=== PATIENT | female | born 1980 | race Caucasian/White ===

== ENCOUNTER 2016-11-03 14:00 | Inpatient (IN) | payer OTHER ==
[~2016-11-03] VITALS: Ht 167.6 cm; Wt 56.7 kg
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
--- NOTE | ~2016-11-03 | HP ---
Unit #: [id number] #: [id number] Patient: CHELSEA HAYDEN [id number] [place] [address] [id number] MR#: [id number] NAME: CHELSEA HAYDEN ROOM: P202 Age: 36 Sex: F Admission Date: 11/03/2016 : 1980 Attending Physician: Frandy Murphy M.D. Admitting Physician: Frandy Murphy M.D. Primary Care Physician: Generic Doctor Not In System HISTORY AND PHYSICAL HISTORY OF PRESENT ILLNESS The patient is a 36-year-old female admitted to [address] [place] [address] on 11/03/2016 for polysubstance abuse and suicidal ideations. PAST MEDICAL HISTORY Patient denies. PAST SURGICAL HISTORY 1. x3. 2. D and C. 3. Hysterectomy. 4. Breast augmentation. 5. Appendectomy. ALLERGIES Penicillin. SOCIAL HISTORY Patient is employed but is currently on leave. She is homeless. She smokes 1 pack of cigarettes daily. Drinks a pint plus 6 to 10 beers per day and has a history of polysubstance use. FAMILY HISTORY Noncontributory. REVIEW OF SYSTEMS CONSTITUTIONAL: No fever or chills. HEENT: Denies any sore throat, ear pain or runny nose. CARDIOVASCULAR: Denies chest pain, irregular heart rhythm or palpitations. CHEST: Denies shortness of breath or cough. No hemoptysis. GASTROINTESTINAL: Denies nausea, vomiting, diarrhea or chronic constipation. ENDOCRINE: Denies history of increased thirst or urination. No recent significant weight loss or gain. GENITOURINARY: Denies dysuria, frequency, or hematuria. SKIN: Denies any rashes. HEMATOLOGIC: Denies history of increased bleeding or bruising. MUSCULOSKELETAL: Denies any hot, swollen joints. No generalized muscle pain. NEUROLOGIC: Denies problems with vision or speech. No frequent, severe headaches. No numbness, tingling or weakness in any extremities. Denies loss of bladder or bowel control. Unit #: [id number] #: [id number] Patient: CHELSEA HAYDEN CURRENT MEDICATIONS 1. Wellbutrin. 2. Seroquel. PHYSICAL EXAMINATION GENERAL: She is awake, alert, oriented, in no acute distress. VITAL SIGNS: Temperature 98.2, heart rate 101, respirations 16, blood pressure 149/97. HEIGHT: 5 feet 6. WEIGHT: 125 pounds. SKIN: Warm and dry without rash or lesion. HEENT: Normocephalic. TMs not viewed. Oral and nasal passages clear. Conjunctivae clear. PERRLA. EOMs intact. NECK: Supple without lymphadenopathy or thyromegaly. HEART: Regular rate and rhythm without murmur. LUNGS: Clear. ABDOMEN: Soft, nontender. : Not done. EXTREMITIES: No evidence of cyanosis, clubbing or edema. Moves all without focal deficit. NEUROLOGICAL: Grossly within normal limits. Cranial Nerves: II: Visual guzmán are intact. III, IV AND : Extraocular movements are intact. Pupils are equal, round and reactive to light. V: Facial sensation is grossly normal. VII: Facial movements and expression are normal. VIII: Auditory acuity grossly intact. IX, X: Uvula is midline. Phonation is normal. XI: Patient shrugs shoulders and turns head normally. XII: Tongue protrudes in the midline. Sensory and Motor Function: Sensory and motor sensation is grossly normal. Motor: moves all extremities well. Coordination: Gait is normal. Deep Tendon Reflexes: Intact. IMPRESSION 1. Psychiatric admission. 2. Polysubstance use. RECOMMENDATIONS PSYCHIATRIC: Per psychiatrist. MEDICAL: No contraindication to participate in facility's activities. MEDICAL PROGNOSIS Good. MEDICAL CONDITION Stable. Dictated by... Simón Neal/janice TD: 11/04/2016 16:25 JOB #: [id number] Unit #: [id number] #: [id number] Patient: HAYDEN,CHELSEA HISTORY AND PHYSICAL Page 1 of 1 X CONSTANCE MARIE APRN HISTORY AND PHYSICAL
--- NOTE | ~2016-11-03 | A ---
[facility] Nutrition Therapy DATE: 11/06/16 Patient: CHELSEA HAYDEN Physician: LISA Address: NO PERMANENT ADDRESS Room/Bed: [address], Zip: [place] [address] Admit Date: 11/03/16 Date of : [birth year] Height: 5 6 Weight: 124 56.699 NUTRITIONAL ASSESSMENT: REASON: UNINTENTIONAL WEIGHT LOSS PATIENT ADMITTED FOR POLYSUBSTANCE ABUSE AND SI PMH: NONE Anthropometrics: HT: 66", WT: 125#, BMI: 20.2 Labs: 11/04/16- NUTRITIONAL LABS WNL Meds: ZOLOFT, SEROQUEL, DETOX PROTOCOL Assessment: PATIENT IS A 36 Y/O FEMALE ADMITTED FOR SI AND POLYSUBSTANCE ABUSE. PATIENT IS CURRENTLY ON LEAVE FROM WORK, HOMELESS, SMOKES 1 PPD, HAS DAILY ETOH USE (1 PINT +10 BEERS), AND HAS BEEN USING GHB, XANAX, METH, AND SUBOXONE SPORADICALLY. IT IS NOTED THAT PATIENT IS A POOR HISTORIAN, SHE HAS A HX OF INPATIENT PSYCH AND CHEMICAL DEPENDENCY TREATMENT, AND SHE HAS BEEN NON-COMPLIANT WITH HER MEDICATION. UPON ADMIT PATIENT STATED A POOR APPETITE WITH A 10# WEIGHT LOSS OVER LAST SEVERAL MONTHS, AND SHE IS NOT SLEEPING. PATIENT REPORTED THAT SHE HAD NOT SLEPT 3 DAYS PRIOR TO ADMIT AND SHE HAS NOT BEEN EATING D/T HER ETOH USE. PER NEEDS ASSESSMENT FROM 10/30/16 PATIENT STATED A GOOD APPETITE WITH NO RECENT WEIGHT CHANGE. THERE IS NO WEIGHT HX RECORDED IN [facility]. NURSING REPORTED GOOD PO INTAKES. THERE ARE NO SKIN OR GI ISSUES NOTED ATT. CURRENT PSYCH MEDS MAY CAUSE AN INCREASE IN WEIGHT AND APPETITE. PATIENT'S BMI IS WITHIN A HEALTHY RANGE. PATIENT IS CURRENTLY ON A REGULAR DIET. Dx: NO NUTRITION DX Intervention: REGULAR DIET, MEDS PER MD, DETOX, PSYCH Monitoring, Evaluation and Goals: 1. ADEQUATE PO INTAKES >50% OF MEALS 2. PREVENT, CORRECT MICRO/MACRO NUTRIENT DEFICIENCIES MONITOR: WEIGHTS, LABS, PO/FLUID INTAKES Recommendations: 1. CONTINUE REGULAR DIET TOLERATED. OFFER SNACKS BETWEEN MEALS 2. ENCOURAGE ADEQUATE PO AND FLUID INTAKES 3. OBTAIN WEIGHTS ROUTINELY (EVERY 3-4 DAYS) [facility] Nutrition Therapy DATE: 11/06/16 Patient: CHELSEA HAYDEN Physician: LISA Address: NO PERMANENT ADDRESS Room/Bed: P202-[address], [facility], Zip: [place] [address] Admit Date: 11/03/16 Date of : [birth year] Height: 5 6 Weight: [address] TO F/U PER PROTOCOL AND PRN R/T PATIENT NOT AT NUTRITIONAL RISK ATT Respectfully, ANABEL LION, SHANNAN, LD [facility] cc: client file
[2016-11-04 10:35] LABS: BASOPHIL% 0.6 % (0-2.5); EOSINOPHIL# 0.1 X10e3 (0-0.7); EOSINOPHIL% 2.7 % (0.0-7.0); HEMATOCRIT 45.8 % (35.0-45.0); HEMOGLOBIN 15.4 gm/dL (12.0-16.0); LYMPHOCYTE# 1.6 X10e3 (1.0-3.5); LYMPHOCYTE% 31.6 % (17.0-45.0); MEAN CELL VOLUME 89.4 FL (83-96); MEAN CORPUSCULAR HEMOGLOBIN 30.1 PG (28-34); MEAN CORPUSCULAR HGB CONC 33.6 g/dL (30-36); MEAN PLATELET VOLUME 8.2 FL (6.5-11.5); MONOCYTE# 0.5 X10e3 (0-1.0); MONOCYTE% 9.5 % (3.0-12.0); NEUTROPHIL# 2.9 X10e3 (1.5-7.1); NEUTROPHIL% 55.6 % (40-75); PLATELET COUNT 235 X10e3 (140-420); RED BLOOD COUNT 5.12 X10e (3.90-5.30); RED CELL DISTRIBUTION WIDTH 13.6 % (11.0-15.5); WHITE BLOOD COUNT 5.2 X10e3 (4.0-10.5)
[2016-11-04 10:58] LABS: ALBUMIN SERUM 4.1 g/dL (3.5-5.0); BILIRUBIN,TOTAL 2.2 mg/dL (0.2-2.0); CALCIUM SERUM 9.3 mg/dL (8.4-10.2); CREATININE SERUM 1.1 mg/dL (0.6-1.4); GLOM FILT RATE Estimated 64.1 mL/min (>60); POTASSIUM 4.2 mmol/L (3.5-5.1); PROTEIN TOTAL SERUM 6.8 g/dL (6.0-8.3)
[2016-11-04 11:01] LABS: DIFF IND NO
[2016-11-05 15:20] LABS: AMPHETAMINE POS (NEG); BARBITURATES NEG (NEG); BENZODIAZEPINES POS (NEG); COCAINE NEG (NEG); MARIJUANA NEG (NEG); OPIATES NEG (NEG); TRICYCLIC ANTIDEPRESSANTS NEG (NEG); U METHADONE NEG (NEG)
== END 2016-11-08 12:38 | disposition home or self-care (01) | DRG 881 ==
LOC: P2S 17:29
PROVIDERS: Psychiatry & Neurology Psychiatry
PROC: HZ2ZZZZ Detoxification Services for Substance Abuse Treatment (ICD-10-PCS; principal; 2016-11-03)
DX: F32.9 Major depressive disorder, single episode, unspecified (principal); R45.851 Suicidal ideations; F19.20 Other psychoactive substance dependence, uncomplicated; F43.12 Post-traumatic stress disorder, chronic; F60.3 Borderline personality disorder; Z59.0 Homelessness; F10.20 Alcohol dependence, uncomplicated
CPT/HCPCS: 80053; 80307; 84703; 85025